=== PATIENT | female | born 1950 | race Caucasian/White ===

== ENCOUNTER → 2018-05-05 14:35 | Outpatient (CLI) | payer OTHER, SELFPAY ==
--- NOTE | 2018-05-05 15:02 | DI.MG.S_ITS ---
Patient Name: ALEXIS MALDONADO date: 1950 Sex: F Attending Physician: Trey Indications: Date: 05/05/2018 15:02 At the request of: YOSSI DONALD Procedure: MM screening mammo BI BILATERAL DIGITAL SCREENING MAMMOGRAM 3D/2D WITH CAD: 05/05/2018 CLINICAL: Routine screening. Comparison is made to exams dated: 10/09/2013 mammogram, 08/08/2012 mammogram, and 03/03/2009 mammogram - [facility]. The tissue of both breasts is predominantly fatty. Current study was also evaluated with a Computer Aided Detection (CAD) system. There is possible architectural distortion in the left breast middle depth upper region seen on the mediolateral oblique view only, best seen on tomosynthesis slice 35/72 on the L MLO view. Left breast calcifications demonstrate layering on the L MLO view and are benign. There are right breast benign vascular calcifications. No other significant masses, calcifications, or other findings are seen in either breast. IMPRESSION: INCOMPLETE: NEEDS ADDITIONAL IMAGING EVALUATION The possible architectural distortion in the left breast is indeterminate. Additional views with possible ultrasound are recommended. This exam was interpreted at Station ID: [id number]. NOTE: For mammograms, a report in lay terms will be sent to the patient. Approximately 15% of breast malignancies will not be visualized mammographically. In the management of a palpable breast mass, a negative mammogram must not discourage biopsy of a clinically suspicious lesion. Electronically Signed By: James Lui M.D. ecl/:05/10/2018 20:30:51 letter sent: Additional Imaging Needed ACR BI-RADS Category 0: Incomplete [id number]
== END ==
PROVIDERS: PCP Family Medicine; Visit Provider Family Medicine
DX: Z12.31 Encounter for screening mammogram for malignant neoplasm of breast (principal)
CPT/HCPCS: 77063; 77067

== ENCOUNTER → 2018-06-22 12:38 | Outpatient (CLI) | payer OTHER, SELFPAY ==
--- NOTE | 2018-06-22 | DI.US.S_ITS ---
ULTRASOUND OF LEFT BREAST: 06/22/2018 CLINICAL: Patient returns today to evaluate architectural distortion in the left breast. Comparison is made to exams dated: 06/22/2018 mammogram, 05/05/2018 mammogram - [facility], and 10/09/2013 mammogram - [facility]. Real-time and Doppler ultrasound of the upper left breast were performed. Vargas scale images of the real-time examination were reviewed. No masses or abnormalities were identified in the upper left breast. IMPRESSION: SUSPICIOUS OF MALIGNANCY - FOLLOW-UP RECOMMENDED No ultrasound correlate for the 1.0 cm mass with architectual distortion identified in the upper left breast at middle depth on screening and diagnostic mammography. A stereotactic biopsy is recommended. These results and recommendations were discussed with the patient at the time of the exam by [facility] radiologist Dr. bAhinav Capellan. This exam was interpreted at Station ID: [id number]. Electronically Signed By: James Lui M.D. ecl/:06/22/2018 14:27:42 letter sent: Biopsy Required Ultrasound BI-RADS: 4b Suspicious abnormality - intermediate suspicion of malignancy
--- NOTE | 2018-06-22 | DI.MG.S_ITS ---
UNILATERAL LEFT DIGITAL DIAGNOSTIC MAMMOGRAM 3D/2D WITH ADDITIONAL VIEWS: 06/22/2018 CLINICAL: Additional evaluation requested from prior study. Comparison is made to exams dated: 05/05/2018 mammogram - [facility], 10/09/2013 mammogram, and 08/08/2012 mammogram - [facility]. The tissue of the left breast is heterogeneously dense. This may lower the sensitivity of mammography. The architectual distortion in the upper left breast at middle depth persists with addtional views, with an approximately 1.0 cm equal density mass identified and surrounded by radiating spicules. This appears to localize to the 12 o'clock position with additional views. This is best seen on L MLO tomosynthesis slice 29/55. No other significant masses, calcifications, or other findings are seen in the breast. IMPRESSION: INCOMPLETE: NEEDS ADDITIONAL IMAGING EVALUATION Persistent architectual distortion surrounding an approximately 1.0 cm mass in the upper left breast at middle depth. A targeted ultrasound is recommended for further evaluation. This exam was interpreted at Station ID: [id number]. NOTE: For mammograms, a report in lay terms will be sent to the patient. Approximately 15% of breast malignancies will not be visualized mammographically. In the management of a palpable breast mass, a negative mammogram must not discourage biopsy of a clinically suspicious lesion. Electronically Signed By: James Lui M.D. ecl/:06/22/2018 14:27:03 letter sent: Additional Imaging Needed ACR BI-RADS Category 0: Incomplete [id number]
== END ==
PROVIDERS: PCP Family Medicine; Visit Provider Family Medicine
DX: R92.8 Other abnormal and inconclusive findings on diagnostic imaging of breast (principal); N63.20 Unspecified lump in the left breast, unspecified quadrant
CPT/HCPCS: 76642; 77065; G0279